=== PATIENT | male | born 1955 | race Caucasian/White ===

== ENCOUNTER 2018-05-26 15:58 | Emergency (ER) | payer OTHER ==
[~2018-05-26] VITALS: Ht 180.3 cm; Wt 102.1 kg
[~2018-05-26 15:58] MED LIST: ACIPHEX20 MG PO; COZAAR25 MG PO
[2018-05-26] MEDS ORDERED: COZAAR50 MG (16:18)
[2018-05-27] MEDS ORDERED: COZAAR50 MG PO (04:34)
[2018-05-27] MEDS ORDERED: KETO10TA2 PO (04:34)
[2018-05-27] MEDS ORDERED: NORFLEX100MG PO (04:34)
[2018-05-28] MEDS ORDERED: ADALAT CC30 MG PO (04:17)
== END 2018-05-27 04:50 | disposition home or self-care (01) ==
LOC: ER 15:58
DX: I10 Essential (primary) hypertension (principal); R51 Headache

== ENCOUNTER → 2018-05-27 | Emergency (ER) | payer OTHER ==
[~2018-05-27] VITALS: Ht 177.8 cm; Wt 99.8 kg
[~2018-05-27] MED LIST changes: +ADALAT CC30 MG PO; +COZAAR50 MG; +COZAAR50 MG PO; +KETO10TA2 PO; +NORFLEX100MG PO
== END | disposition home or self-care (01) ==
LOC: ER 21:38
DX: I10 Essential (primary) hypertension (principal)

== ENCOUNTER 2020-04-14 05:39 | Emergency (ER) | payer OTHER ==
[~2020-04-14] VITALS: Ht 177.8 cm; Wt 90.7 kg
[2020-04-14] MEDS ORDERED: LOSARTAN POTASS50 MG (06:17)
== END 2020-04-14 09:00 | disposition home or self-care (01) ==
LOC: ER 05:39
DX: S61.032A Puncture wound without foreign body of left thumb without damage to nail, initial encounter (principal); W45.8XXA Other foreign body or object entering through skin, initial encounter; Y93.89 Activity, other specified; Y92.018 Other place in single-family (private) house as the place of occurrence of the external cause; Y99.8 Other external cause status

== ENCOUNTER 2022-02-21 08:16 | Outpatient (CLI) | payer OTHER ==
[~2022-02-21 08:16] MED LIST changes: +LOSARTAN POTASS50 MG
== END 2022-02-21 08:28 | disposition home or self-care (01) ==
LOC: RX STUDY 08:16
PROVIDERS: ATTEND Internal Medicine Cardiovascular Disease
DX: R13.10 Dysphagia, unspecified (principal)

== ENCOUNTER 2022-05-16 07:59 | Outpatient (CLI) | payer OTHER | END 2022-05-16 08:00 | disposition home or self-care (01) | LOC: RAD 07:59 | PROVIDERS: ATTEND Neurological Surgery | DX: M43.8X9 Other specified deforming dorsopathies, site unspecified (principal); M54.50 Low back pain, unspecified ==

== ENCOUNTER 2022-07-08 08:26 | Outpatient (CLI) | payer OTHER | END 2022-07-08 08:31 | disposition home or self-care (01) | LOC: TOM 08:26 | PROVIDERS: ATTEND Neurological Surgery | DX: M48.10 Ankylosing hyperostosis [Forestier], site unspecified (principal); M47.26 Other spondylosis with radiculopathy, lumbar region; G89.4 Chronic pain syndrome ==

== ENCOUNTER 2022-07-10 07:36 | Outpatient (CLI) | payer OTHER | END 2022-07-10 07:43 | disposition home or self-care (01) | LOC: MRI 07:36 | PROVIDERS: ATTEND Neurological Surgery | DX: M47.15 Other spondylosis with myelopathy, thoracolumbar region (principal); M48.10 Ankylosing hyperostosis [Forestier], site unspecified; M51.36 Other intervertebral disc degeneration, lumbar region; M43.8X9 Other specified deforming dorsopathies, site unspecified; M46.1 Sacroiliitis, not elsewhere classified; M13.0 Polyarthritis, unspecified; M40.295 Other kyphosis, thoracolumbar region | CPT/HCPCS: 72146 ==

== ENCOUNTER → 2023-02-23 | Outpatient (CLI) | payer OTHER | END | disposition home or self-care (01) | LOC: MRI 06:53 | PROVIDERS: ATTEND Internal Medicine Cardiovascular Disease | DX: M46.48 Discitis, unspecified, sacral and sacrococcygeal region (principal) | CPT/HCPCS: 72148 ==

== ENCOUNTER 2023-04-15 08:02 | Outpatient (CLI) | payer OTHER | END 2023-04-15 08:08 | disposition home or self-care (01) | LOC: RAD 08:02 | PROVIDERS: ATTEND Neurological Surgery | DX: S22.088G Other fracture of T11-T12 vertebra, subsequent encounter for fracture with delayed healing (principal); F41.0 Panic disorder [episodic paroxysmal anxiety]; M48.19 Ankylosing hyperostosis [Forestier], multiple sites in spine; M43.22 Fusion of spine, cervical region; F51.02 Adjustment insomnia; F43.23 Adjustment disorder with mixed anxiety and depressed mood; E55.9 Vitamin D deficiency, unspecified; E29.1 Testicular hypofunction ==

== ENCOUNTER 2023-04-20 13:20 | Outpatient (CLI) | payer OTHER | END 2023-04-20 13:21 | disposition home or self-care (01) | LOC: NUCLEAR 13:20 | PROVIDERS: ATTEND Neurological Surgery | DX: S22.088G Other fracture of T11-T12 vertebra, subsequent encounter for fracture with delayed healing (principal); F41.0 Panic disorder [episodic paroxysmal anxiety]; M48.19 Ankylosing hyperostosis [Forestier], multiple sites in spine; F51.02 Adjustment insomnia; F43.23 Adjustment disorder with mixed anxiety and depressed mood; E29.1 Testicular hypofunction; M43.22 Fusion of spine, cervical region ==

== ENCOUNTER 2023-06-26 07:23 | Outpatient (CLI) | payer OTHER | END 2023-06-26 07:30 | disposition home or self-care (01) | LOC: RAD 07:23 | PROVIDERS: ATTEND Neurological Surgery | DX: M48.19 Ankylosing hyperostosis [Forestier], multiple sites in spine (principal); S22.088G Other fracture of T11-T12 vertebra, subsequent encounter for fracture with delayed healing; F41.0 Panic disorder [episodic paroxysmal anxiety]; M43.22 Fusion of spine, cervical region; F51.02 Adjustment insomnia; F43.23 Adjustment disorder with mixed anxiety and depressed mood; E55.9 Vitamin D deficiency, unspecified; E29.1 Testicular hypofunction ==

== ENCOUNTER 2024-02-10 07:00 | Outpatient (CLI) | payer OTHER | END 2024-02-10 07:30 | disposition home or self-care (01) | LOC: MRI 07:00 | PROVIDERS: ATTEND Psychiatry & Neurology Neurology | DX: G25.0 Essential tremor (principal) | CPT/HCPCS: 70551 ==

== ENCOUNTER 2024-05-30 09:24 | Outpatient (CLI) | payer OTHER | END 2024-05-30 09:35 | disposition home or self-care (01) | LOC: TOM 09:24 | PROVIDERS: ATTEND Internal Medicine Cardiovascular Disease | DX: R10.9 Unspecified abdominal pain (principal); K81.9 Cholecystitis, unspecified; K57.30 Diverticulosis of large intestine without perforation or abscess without bleeding ==

== ENCOUNTER 2024-07-26 08:29 | Outpatient (CLI) | payer OTHER | END 2024-07-26 08:35 | disposition home or self-care (01) | LOC: SONOGRAMA 08:29 | PROVIDERS: ATTEND Internal Medicine Cardiovascular Disease | DX: M12.9 Arthropathy, unspecified (principal) ==

== ENCOUNTER 2024-09-12 07:00 | Emergency (ER) | payer OTHER ==
[~2024-09-12] VITALS: Ht 175.3 cm; Wt 90.7 kg
[2024-09-12] MEDS ORDERED: ROSUVASTATIN CA40 MG PO (07:26)
[2024-09-12] MEDS ORDERED: TOPROL XL25 M1 (07:26)
[2024-09-12] MEDS ORDERED: METFORMIN HCL500 M4 PO (07:27)
[2024-09-12] MEDS ORDERED: DEPAKOTE ER250 MG PO (07:28)
[2024-09-12] MEDS ORDERED: TELMISARTAN80 MG PO (07:28)
[2024-09-12] MEDS ORDERED: FAMOTIDINE/PF 20 MG/2 ML VIAL IV PUSH ONE (09:45)
[2024-09-12] MEDS ORDERED: 0.9 % SODIUM CHLORIDE 500 ML IV ONE (09:45)
[2024-09-12 10:51] LABS: HEMATOCRIT 42.1 % (39.0-48.0); HEMOGLOBIN 14.1 g/dL (13-16.00); MEAN CELL VOLUME 89.7 fL (80.0-100.00); MEAN CORPUSCULAR HGB CONC 33.5 g/dl (32.0-36.0); PLATELET COUNT 183 K/uL (150-450); RED BLOOD COUNT 4.69 M/uL (4.00-6.00)
[2024-09-12 11:29] LABS: ALBUMIN 3.8 gm/dL (3.4-5.0); BILIRUBIN TOTAL 0.43 mg/dL (0.3-1.2); CALCIUM 9.2 mg/dL (8.5-10.1); CREATININE SERUM 0.82 mg/dL (0.70-1.30); GFR 93.71; POTASSIUM 5.19 mEq/L (3.5-5.1); TOTAL PROTEIN 7.8 gm/dL (6.4-8.2)
[2024-09-12 13:57] LABS: PH,URINE 5.5 (5.0-8.0); URINE APPEARANCE Clear; URINE BILIRRUBIN Negative (NEGATIVE); URINE BLOOD Negative; URINE COLOR Yellow; URINE GLUCOSE Negative (NEGATIVE); URINE KETONE Negative (NEGATIVE); URINE LEUKOCYTE Negative; URINE NITRATE Negative; URINE PROTEIN Negative (NEGATIVE); URINE UROBILINOGEN 0.2 E.U./dl
[2024-09-12 14:00] LABS: URINE BACTERIA 13.8 uL (0.0-1933); URINE RBC 4.5 uL (0.0-20.8); URINE WBC 2.7 uL (0.0-23.2)
[2024-09-12] MEDS ORDERED: PEPCID AC20 MG PO (14:31)
[2024-09-12] MEDS ORDERED: INTESTINEX680 M1 PO (14:31)
[2024-09-12] MEDS ORDERED: METAMUCIL POWD575 G1 PO (14:42)
== END 2024-09-12 14:48 | disposition home or self-care (01) ==
LOC: ER 07:02
PROVIDERS: General Practice
DX: K86.0 Alcohol-induced chronic pancreatitis (principal); E11.9 Type 2 diabetes mellitus without complications; Z79.84 Long term (current) use of oral hypoglycemic drugs; I10 Essential (primary) hypertension; K57.30 Diverticulosis of large intestine without perforation or abscess without bleeding; F10.10 Alcohol abuse, uncomplicated; N20.0 Calculus of kidney
CPT/HCPCS: 74177; 96365; 99284; J3490; J7042; Q9965

== ENCOUNTER 2025-10-24 07:29 | Outpatient (CLI) | payer OTHER ==
[~2025-10-24 07:29] MED LIST changes: +DEPAKOTE ER250 MG PO; +INTESTINEX680 M1 PO; +METAMUCIL POWD575 G1 PO; +METFORMIN HCL500 M4 PO; +PEPCID AC20 MG PO; +ROSUVASTATIN CA40 MG PO; +TELMISARTAN80 MG PO; +TOPROL XL25 M1
== END 2025-10-24 07:31 | disposition home or self-care (01) ==
LOC: SONOGRAMA 07:29
PROVIDERS: ATTEND Surgery
DX: R10.9 Unspecified abdominal pain (principal); R19.4 Change in bowel habit; R14.0 Abdominal distension (gaseous); K57.30 Diverticulosis of large intestine without perforation or abscess without bleeding; Z80.0 Family history of malignant neoplasm of digestive organs; K30 Functional dyspepsia; K21.9 Gastro-esophageal reflux disease without esophagitis; K76.0 Fatty (change of) liver, not elsewhere classified